=== PATIENT | female | born 1975 | race Caucasian/White ===

== ENCOUNTER 2023-01-18 15:26 | Outpatient (REF) | payer BC, SELFPAY ==
--- NOTE | ~2023-01-18 | XR_ITS ---
EXAMINATION: XR chest 2V CLINICAL INFORMATION: Reason for Exam COUGH COMPARISON: None TECHNIQUE: 2 views of the chest FINDINGS: Clear lungs. No pneumothorax or pleural effusion. Normal cardiomediastinal silhouette. XR/XR chest 2V Impression: * Clear lungs.
== END 2023-01-18 15:27 | disposition home or self-care (01) ==
LOC: HO.XRAY 15:26
PROVIDERS: PCP Internal Medicine; Visit Provider Internal Medicine
DX: R05.9 Cough, unspecified (principal); R06.2 Wheezing
CPT/HCPCS: 71046

== ENCOUNTER 2024-03-20 14:18 | Outpatient (AMB) | payer BC, SELFPAY ==
--- NOTE | 2024-03-20 14:21 | AM.OFFWIN_ITS ---
Intake Vital Signs 3 03/20/24 14:25 Height 5 ft 6 in Weight 260 lb BMI 42.0 BP 130/80 Blood Pressure Location Lt brachial Position Sitting Pulse 96 Pulse Source Pulse Oximeter Temp 97.3 F Temp Source Temporal Artery Scan Pulse Oximetry (%) 96 Oxygen Delivery Method Room Air Intake Visit Reasons: Possible cyst on Back Intake Note: pt is here today for possible cyst on back started 8 months ago Patient Tobacco Use Status: Never used Tobacco Allergies apple [APPLE] Allergy (Unknown, Unverified 03/20/24 14:38) SWELLING Medication List - Last Reconciled 03/20/24 by Miriam Smith CNP apremilast (Otezla) 30 mg PO BID hydrochlorothiazide 12.5 mg PO DAILY lisinopril 10 mg PO BID Do you need a note to return to daycare/school/sports/work: No HPI HPI Comments 2 History of Present Illness0 Details 48-year-old female presents today for cy st on her back that started 8 months ago. Patient reports 8 months ago she had an abscess on her back that her sister popped for her and a whole bunch of gunk came out , she had no further issues until 4 days ago when her son asked her what was on her back, he tried to pop it and 1 day later it was red, swollen and very painful. Presently she reports pain to touch. She denies fever, chills, insect bite, CP, SOB, dizziness, abdominal pain, nausea, vomiting, or changes in bowels or bladder. Upon physical examination she has a large, gulf ball size furuncle on her left upper back below scapula w/ erythema and blanching, that is very painful to touch and pressure. ON LICENSE OF [facility] Social History Patient Tobacco Use Status: Never used Tobacco Review of Systems Const All systems reviewed & are unremarkable except as noted in HPI and below Physical Exam Vital Signs: Last Vital Signs Temp 97.3 F 03/20/24 14:25 Pulse 96 03/20/24 14:25 BP 130/80 03/20/24 14:25 Pulse Ox 96 03/20/24 14:25 Oxygen Delivery Method Room Air 03/20/24 14:25 BMI result Body Mass Index 42.0 Const General: cooperative and healthy appearing Nutritional Appearance: well nourished Orientation/consciousness: patient oriented x3 Limitations: no limitations Neck Neck: Yes no meningeal signs Chest Chest palpation & inspection: normal inspection of the chest Resp Effort & Inspection: normal respiratory effort, no cough, no respiratory distress and not tachypneic Auscultation: clear to auscultation bilaterally Cardio Rate: regular rate Rhythm: regular rhythm Heart sounds: S1 normal heart sound present and S2 normal heart sound present Peripheral pulses: Peripheral pulses 2+ throughout GI Palpation (GI): Soft to palpation and nontender Auscultation: normal bowel sounds Back/Spine/Pelvis Other: large, gulf ball size furuncle on her left upper back below scapula w/ erythema and blanching, that is very painful to touch and pressure. Back/spine/pelvis image: 2 1. large, gulf-ball size, erythematous, and blanching furnuncle/ abscess that is hard on the outer edges, and mobile center, very painful to touch. Neuro General: patient oriented x3, gait normal, moves all extremities, no meningeal signs and no focal motor deficits Extrem General: Yes normal to inspection, Yes full ROM and Yes no clubbing, cyanosis or edema Psych Appearance: well kempt Mental Status: mental status grossly normal Speech and movement: Normal speech and movement present Affect: normal affect Attitude: cooperative Office Procedures I&D Drain 05505-[id number] of Skin Abscess, complex (Incision and Drainage of Abscess, Furuncle) All charges added?: Procedure code (CPT) selection complete Assessment & Plan Assessment & Plan (1) Abscess of upper back excluding scapular region: Code(s): L02.212 - Cutaneous abscess of back [any part, except buttock] Plan: 48-year-old female seen today in walk-in clinic for recurrent gold-ball sized abscess on left upper back below the scapula. I&D performed in office with aseptic technique, 2% lidocaine 2 ml's x 5 vials used to numb tissue at abscess site and outer area of abscess. Patient tolerated procedure with some pressure but no pain. 2 cm incision made with scalpel, drained 100 ml's of wood light brown purulent drainage, 2 inch new guaze soaked in 1/2 strength H202 packed in wound cavity, bacitracin ointment applied to outer edges of wound, and dresses with dry sterile dressing. - Will treat w/ Doxycycline 100 mg po bid x 7 days, encouraged to take with food to reduce GI upet - May change outer dressing qd prn at home with dry dressing, do not remove wicked packing - Alternate acetaminophen 650-1,000 mg po w/ Ibuprofen 400-600 mg po for pain control, also sent Rx for Oxycodone 5 mg po qd prn for uncontrolled pain with acetaminophen and Ibuprofen. - Work note provided, should not return to work until she follows up in Walk-in Clinic on 03/23/24. - Will f/u in office on 03/23/24 for re-evaluation of abscess and possible further drainage on 03/23/24; may need to be referred to General Surgery. - Encouraged if she develops fever, chills, lightheadedness, or increased severe pain to follow up in ER. (2) Carbuncle and furuncle of other specified sites: Code(s): L02.828 - Furuncle of other sites; L02.838 - Carbuncle of other sites Plan: Left upper back furuncle/abscess (see above) (3) Encounter for incision and drainage procedure: Code(s): Z76.89 - Persons encountering health services in other specified circumstances Plan: I & D in office for left upper back abscess (see above) Orders: Orders 2 AMB Incision & Drainage 03/20/24 Miriam Smith CNP Z76.89 - Persons encountering health services in other specified circumstances Medications: New 2 oxycodone Partial Fill upon patient request. 5 mg PO DAILY PRN 5 tabs 0RF pain Yaron Carlos MD doxycycline monohydrate 100 mg PO BID 14 caps 0RF 7 days Miriam Servin CNP L02.212 - Cutaneous abscess of back [any part, except buttock] Coding Level of Care Code Est Pt Level 5 (83875) Diagnoses Abscess of upper back excluding scapular region L02.212 Carbuncle and furuncle of other specified sites L02.828; L02.838 Encounter for incision and drainage procedure Z76.89 CPT Codes I&D Drain - Drain 2: [id number] of Skin Abscess, complex ([id number])
[2024-03-20 14:25] VITALS: BP 130/80; PULSE 96; TEMP 36.3; O2SAT 96; BMI 42.0
== END 2024-03-20 17:36 | disposition home or self-care (01) ==
PROVIDERS: PCP Internal Medicine; Visit Provider Nurse Practitioner Acute Care
DX: L02.212 Cutaneous abscess of back [any part, except buttock and flank] (principal)
CPT/HCPCS: 10061; 99214

== ENCOUNTER 2024-03-23 15:15 | Outpatient (AMB) | payer BC, SELFPAY ==
[2024-03-23 15:17] VITALS: BP 132/80; PULSE 70; TEMP 37; O2SAT 96
--- NOTE | 2024-03-23 15:17 | AM.OFFWIN_ITS ---
Intake Vital Signs 03/23/24 15:17 Height 5 ft 6 in BP 132/80 Blood Pressure Location Rt brachial Position Sitting Pulse 70 Pulse Source Pulse Oximeter Temp 98.6 F Temp Source Oral Pulse Oximetry (%) 96 Oxygen Delivery Method Room Air Intake Visit Reasons: EP remove packing Intake Note: Pt is here for removal of packing from cyst Patient Tobacco Use Status: Never used Tobacco Allergies apple [APPLE] Allergy (Unknown, Verified 03/23/24 15:18) SWELLING Do you need a note to return to daycare/school/sports/work: No HPI HPI Comments History of Present Illness Details Patient presents to the walk-in today for sick visit Seen here 3 days ago for abscess to the left upper back. I and D was performed, packing placed and patient is started on antibiotics She presents today to have the packing removed Has been taking the antibiotics as prescribed without difficulty Denies fevers, chills, worsening pain Minimal drainage over the last 24 hours Prior note from walk-in visit on 03/20/2024: 48-year-old female presents today for cy st on her back that started 8 months ago. Patient reports 8 months ago she had an abscess on her back that her sister popped for her and a whole bunch of gunk came out , she had no further issues until 4 days ago when her son asked her what was on her back, he tried to pop it and 1 day later it was red, swollen and very painful. Presently she reports pain to touch. She denies fever, chills, insect bite, CP, SOB, dizziness, abdominal pain, nausea, vomiting, or changes in bowels or bladder. Upon physical examination she has a large, gulf ball size furuncle on her left upper back below scapula w/ erythema and blanching, that is very painful to touch and pressure. [facility] Social History Patient Tobacco Use Status: Never used Tobacco Review of Systems Const All systems reviewed & are unremarkable except as noted in HPI and below Physical Exam Vital Signs: Last Vital Signs Temp 98.6 F 03/23/24 15:17 Pulse 70 03/23/24 15:17 BP 132/80 03/23/24 15:17 Pulse Ox 96 03/23/24 15:17 Oxygen Delivery Method Room Air 03/23/24 15:17 General: awake, alert, oriented. Answers questions appropriately. Fully engaged in examination. Skin: warm, dry, intact. Left upper back: Dressing removed, scant amount of serous drainage noted. 4 cm by 4 cm indurated area left upper back with central opening secondary to previous incision for I&D. Packing removed, patient tolerated well. Telfa dressing applied. HEENT: Normocephalic. Hearing intact. Cardiac: External chest normal in appearance. Respiratory: No cough, audible wheezing or stridor. Speaking in full sentences. No angio or periorbital edema noted Abdomen: without gross distension. MS: No obvious swelling or deformities. Neurological: Oriented to person, place, time and situation. Thought process intact. No gait abnormalities appreciated. Psychiatric: Appropriate mood and affect. Good judgment and insight. Assessment & Plan Assessment & Plan (1) Wound check, abscess: Code(s): Z51.89 - Encounter for other specified aftercare Plan Wound appears to be healing well, scant amount of serous drainage noted on the dressing. Continue with dressing changes as instructed. Continue with antibiotics as prescribed until course complete Follow up with PCP, consider referral to General surgery All questions and concerns were answered, patient agrees with the plan Follow up with PCP or return here for any new or worsening symptoms Coding Level of Care Code Est Pt Level 3 (09914) Diagnoses Wound check, abscess Z51.89
== END 2024-03-23 16:17 | disposition home or self-care (01) ==
PROVIDERS: PCP Internal Medicine; Visit Provider Registered Nurse Emergency
DX: L02.212 Cutaneous abscess of back [any part, except buttock and flank] (principal); Z51.89 Encounter for other specified aftercare
CPT/HCPCS: 99024

== ENCOUNTER 2024-07-01 01:32 | Emergency (ER) | payer BC, SELFPAY ==
--- NOTE | ~2024-07-01 | XR_ITS ---
EXAMINATION: XR SHOULDER, RIGHT CLINICAL INFORMATION: Injury. Pain. COMPARISON: None available. TECHNIQUE: AP external rotation, Grashey, scapular Y, and axillary views of the right shoulder. FINDINGS: The bones and soft tissues are normal. No fracture. Glenohumeral and acromioclavicular alignment is anatomic with normal joint space. No abnormal soft tissue calcifications. XR/XR shoulder RT min 2V IMPRESSION: No significant abnormality identified. Electronically signed by: Chandra Patel MD 07/01/2024 02:58 AM EDT
[2024-07-01 01:39] VITALS: BP 126/90; PULSE 78; RESP 18; TEMP 36.4; O2SAT 100; BMI 39.3
--- NOTE | 2024-07-01 04:45 | ED_ITS ---
HPI - Extremity Problem General Chief complaint: Extremity Injury, Upper Stated complaint: shoulder pain Time Seen by Provider: 07/01/24 04:45 Source: patient Mode of arrival: ambulatory Limitations: no limitations History of Present Illness ED Provider: Dr. Walden HPI Narrative: about 7 days ago patient was moving stuff around in her basement. As the week progressed she developed more and more shoulder pain. She denies direct injury, no fever, can barely move her arm now. Related Data Home Medications ?Medication ?Instructions ?Recorded ?Confirmed apremilast 30 mg tablet (Otezla) 30 mg PO BID 03/20/24 03/20/24 hydrochlorothiazide 12.5 mg tablet 12.5 mg PO DAILY 03/20/24 03/20/24 lisinopril 10 mg tablet 10 mg PO BID 03/20/24 03/20/24 Previous Rx's ?Medication ?Instructions ?Recorded doxycycline monohydrate 100 mg 100 mg PO BID 7 days #14 caps 03/20/24 capsule oxycodone 5 mg tablet 5 mg PO DAILY PRN pain #5 tabs 03/20/24 cyclobenzaprine 10 mg tablet 10 mg PO TID #10 tabs 07/01/24 naproxen 500 mg tablet (Naprosyn) 500 mg PO BID #20 tabs 07/01/24 Allergies Allergy/AdvReac Type Severity Reaction Status Date / Time apple [APPLE] Allergy Unknown SWELLING Verified 07/01/24 01:42 Review of Systems Review of Systems: Yes all other systems are reviewed and are negative Neurologic: Denies Sensory deficit (Neuro) [facility] Social History Social History Patient Tobacco Use Status: Never used Tobacco Advance Directives: No Advance Directives Information Provided: No Do you have a plan to hurt others: No Plan Physical Exam Vital Signs: Vital Signs: Last Vital Signs Temp 97.6 F 07/01/24 01:39 Pulse 78 07/01/24 01:39 Resp 18 07/01/24 01:39 BP 126/90 H 07/01/24 01:39 Pulse Ox 100 07/01/24 01:39 O2 Del Method Room Air 07/01/24 01:39 BMI result Body Mass Index 39.3 Const: General: healthy appearing Nutritional Appearance: average body habitus Orientation/consciousness: oriented to person and patient oriented x3 Limitations: no limitations HEENT: Head: Yes normal to inspection Ears: external ears normal General nose exam: Normal external nose present Mouth: Normal oral and palatal mu cosa present and oropharynx normal Throat: Yes posterior oropharynx normal Eyes: General: appearance normal, both eyes and all related structures Neck: Other: supple Neck: Yes normal visual inspection Chest: Chest palpation & inspection: normal inspection of the chest Resp: Auscultation: clear to auscultation bilaterally Cardio: Jugular venous distension: no JVD Rate: regular rate Rhythm: re gular rhythm Heart sounds: S1 normal heart sound present and S2 normal heart sound present GI: Inspection: Yes normal to inspection Palpation (GI): Soft to palpation, nontender and No hepatosplenomegaly present Auscultation: normal bowel sounds : General: Yes no CVA tenderness Back/Spine/Pelvis: Back: no CVA tenderness Skin: General skin exam: no rashes or lesions noted Neuro: General: oriented to person and patient oriented x3 Cranial nerves: Yes CN's II-XII intact bilaterally Motor exam (neuro): 5/5 motor strength present throughout Sensory Exam: No Sensory deficit (Neuro) Extrem: Other: shoulder with decreased range of motion, tender along biceps tendon, unable to internally or externally rotate Psych: Appearance: grossly normal Course Reevaluation(s) Reevaluation #1: patient with likely tendonitis and bursitis will give nsaids and flexeril, showed the patient 3 exercises to do to prevent frozen shoulder Time: 05:09 Medical Decision Making Differential Diagnosis Differential Diagnoses: The differential diagnosis associated with the presentation includes (bursitis, tendonitis, shoulder strain) Independent Interpretation I performed an independent interpretation of an: Plain X-Ray (shoulder: no fracture or dislocation) Prescription Management I considered prescription management with: Pain Medication (will not give narcotics) Discharge Plan Discharge Clinical Impression: Bursitis, Tendonitis Patient Disposition: Home, Self-Care Instructions: Shoulder Bursitis (ED), Tendinitis (ED) Prescriptions: New cyclobenzaprine 10 mg tablet 10 mg PO TID Qty: 10 0RF naproxen [Naprosyn] 500 mg tablet 500 mg PO BID Qty: 20 0RF No Action Otezla 30 mg tablet 30 mg PO BID hydrochlorothiazide 12.5 mg tablet 12.5 mg PO DAILY lisinopril 10 mg tablet 10 mg PO BID doxycycline monohydrate 100 mg capsule 100 mg PO BID 7 Days Qty: 14 0RF oxycodone 5 mg tablet 5 mg PO DAILY PRN (Reason: pain) Qty: 5 0RF Rx Instructions: Partial Fill upon patient request. Referrals: Giovany Espinoza MD [Primary Care Provider] - 1 week Print Language: Lithuanian
[2024-07-01 05:50] VITALS: BP 143/84; PULSE 76; RESP 18; TEMP 36.3; O2SAT 100
[2024-07-01] MEDS: Cyclobenzaprine HCl 10 MG TABLET PO (05:52)
[2024-07-01] MEDS: Ketorolac Tromethamine 60 MG/2 ML VIAL IM (05:56)
[2024-07-01 06:23] VITALS: BP 143/84; PULSE 76; RESP 18; TEMP 36.3; O2SAT 100
== END 2024-07-01 05:55 | disposition home or self-care (01) ==
PROVIDERS: Emergency Provider Emergency Medicine; PCP Internal Medicine
DX: M75.51 Bursitis of right shoulder (principal); M25.511 Pain in right shoulder; Z79.899 Other long term (current) drug therapy
CPT/HCPCS: 73030; 96372; 99284; J1885